=== PATIENT | male | born 1995 | race Caucasian/White ===

== ENCOUNTER 2025-01-21 22:53 | Emergency (ER) | payer MEDICAID, SELFPAY ==
[2025-01-21 23:00] VITALS: BMI 43.7
[2025-01-21 23:05] VITALS: BP 147/77; PULSE 96; RESP 18; TEMP 36.6; O2SAT 97; BMI 43.7
[2025-01-22] VITALS (10 sets, daily range): BP systolic 133–142; BP diastolic 67–81; PULSE 74–89; RESP 22; TEMP 36.9; O2SAT 97–99
--- NOTE | 2025-01-22 03:10 | ED.NEUROSD ---
HPI - Neuro Symptoms/Deficit General Chief Complaint: Neuro Symptoms/Deficit Stated Complaint: Numb on Rt side of body Time Seen by Provider: 01/22/25 02:45 Source: patient Mode of arrival: Ambulatory History of Present Illness HPI Narrative: Patient is a 29-year-old male history of bipolar schizophrenia hypertension presenting today with right-sided numbness. He reports that for the last 2 days he has had right-sided numbness in his arm leg and abdomen and even on his back. No difficulty speaking no weakness no difficulty walking. No chest pain. He told his father abril which is what brought him here. On Anticoagulants: No Related Data Allergies Allergy/AdvReac Type Severity Reaction Status Date / Time No Known Drug Allergies Allergy Verified 01/21/25 23:00 Review of Systems Hematologic/Lymphatic On Anticoagulants: No Patient History Social History Smoking Status: Former smoker Smoking Status: Former smoker Exam Initial Vital Signs Initial Vital Signs: Vital Signs Temperature 97.9 F 01/21/25 23:05 Pulse Rate 96 H 01/21/25 23:05 Respiratory Rate 18 01/21/25 23:05 Blood Pressure 147/77 H 01/21/25 23:05 Pulse Oximetry 97 01/21/25 23:05 Oxygen Delivery Method Room Air 01/21/25 23:05 GENERAL: Well-appearing, well-nourished and in no acute distress. HEENT: Head atraumatic,EOMI, pupils reactive, face symmetric, moist mucous membranes CARDIOVASCULAR: Regular rate and rhythm without murmurs, rubs or gallops. RESPIRATORY: Breath sounds equal bilaterally, no wheezes rales or rhonchi. ABDOMEN: Soft, nontender. Normoactive bowel sounds all 4 quadrants. No guarding or rebound. EXTREMITIES: Normal range of motion, no clubbing or edema. Neurovascularly intact NEUROLOGICAL: Alert and oriented x4.Normal gait and speech. Cranial nerves II through XII grossly intact. Good [id number], good qlaj-[id number], strength equal bilaterally, no dysarthria or aphasia, decreased sensation to the right side no visual changes, no facial droop SKIN: Warm, dry, no laceration, no petechiae, no rashes or lesions. Scores NIH Stroke Scale Level of Conciousness: Alert, keenly responsive Ask month/age: Answers both questions correctly. Open/close eyes, close hand: Performs both tasks correctly Best gaze horizontal: Normal Visual bales: No visual loss Facial palsy: Normal symetrical movement Left arm drift: No drift for full 10 sec Right arm drift: No drift for full 10 sec Left leg drift: No drift for full 5 sec Right leg drift: No drift for full 5 sec Limb ataxia: Absent Sensory on face/arms/legs: Mild to moderate sensory loss, can tell touch Best language: No aphasia, normal Dysarthria: Normal Extinction or inattention: No abnormality Total NIH Stroke scale score: 1 Course Orders Ordered: ED Orders 01/22/25 03:18 CT angio head and neck Stat EKG-12 Lead Stat 01/22/25 03:40 CBC Auto Diff [Complete Blood Count AUTO DIFF] Stat CMP [Comprehensive Metabolic Panel] Stat Troponin & CK Cardiac Panel Stat Vital Signs Vital signs: Vital Signs - 8 hr 01/21/25 23:05 Temperature 97.9 F Pulse Rate 96 H Respiratory Rate 18 Blood Pressure 147/77 H Pulse Oximetry 97 Oxygen Delivery Method Room Air MDM - Neuro Symptoms/Deficit Lab Data 01/22/25 03:40 01/22/25 03:40 Labs: Lab Results 01/22/25 Range/Units 03:40 WBC 9.7 (4.5-11.0) X10^3/uL RBC 4.94 (4.5-5.9) X10^6/uL Hgb 14.2 (13.5-17.5) g/dL Hct 40.3 L (41-53) % MCV 81.6 (80-100) fL MCH 28.8 (26-34) PG MCHC 35.3 (30-36) % RDW 13.1 (11.6-14.8) % Plt Count 220 (150-400) X10^3/uL Neut % (Auto) 55.1 (50-75) % Lymph % (Auto) 31.6 (25-40) % [place] % (Auto) 6.8 (3-14) % Eos % (Auto) 5.4 H (2-4) % Baso % (Auto) 1.1 (0-2) % Neut # (Auto) 5300 (2510-9688) /uL Lymph # (Auto) 3100 (2220-5558) /uL [place] # (Auto) 700 (0-900) /uL Eos # (Auto) 500 H (0-450) /uL Baso # (Auto) 100 (0-100) /uL Sodium 140 (137-145) mmol/L Potassium 4.0 (3.4-5.1) mmol/L Chloride 105 (98-107) mmol/L Carbon Dioxide 25 (22-32) mmol/L BUN 12 (9-20) mg/dL Creatinine 0.79 (0.66-1.25) mg/dL Estimated GFR > 60 (>60) mL/min BUN/Creatinine Ratio 15.2 (6-22) Glucose 94 (70-99) mg/dL Calcium 9.0 (8.4-10.2) mg/dL Total Bilirubin 0.5 (0.2-1.3) mg/dL AST 43 (17-59) IU/L ALT 72 H (<50) IU/L Alkaline Phosphatase 109 (38-126) U/L Total Creatine Kinase 451 H (55-170) U/L Troponin I < 0.012 (0.01-0.034) ng/mL Total Protein 7.7 (6.3-8.2) g/dL Albumin 4.6 (3.5-5.0) g/dL Globulin 3.1 (1.7-4.1) g/dL Albumin/Globulin Ratio 1.5 (1.0-2.8) Imaging Data CTA - brain/neck: Radiologist's Impression: Preliminary report the vasculature of head and neck appears within normal limits there is no occlusion or stenosis ECG Data Attestation: I personally reviewed and interpreted this ECG as follows: Prior ECG tracings: not available for review Interpretation: Sinus rhythm rate of in the 6 PA interval 160 QRS [address] changes or T-wave inversions no priors to compare MDM Narrative Medical decision making narrative: Patient 29-year-old male history of schizoaffective disorder bipolar hypertension presenting today with right-sided numbness of his arm leg and abdomen. Ongoing for the last 2 days. He is out of the window for any kind of thrombolytics. He does not have any weakness NIH stroke scale is 1 per numbness only. Blood work is overall reassuring. CBC shows no leukocytosis or anemia CMP no electrolyte abnormality no ESTEBAN glucose is 94 Bilirubin liver enzymes within normal limits Troponin is negative CPK slightly elevated at 451 but not at level of rhabdo EKGs shows a sinus rhythm no ischemia CT head and neck angio does not show any evidence of large vessel occlusion or CVA. Patient having numbness on his abdomen is not consistent with a CVA. More consistent with like he QRS outpatient follow-up. Discharge Plan Departure Patient Disposition: Home Clinical Impression: Peripheral neuropathy Instructions: DI for Peripheral Neuropathy Activity Restrictions/Additional Instructions: *You have been diagnosed with neuropathy *What to do: At this time please follow up with your primary care provider you may require an outpatient MRI. *Continue to take medications as directed Aspirin 81 mg daily *Follow up with your primary care provider in 2-3 days or call [phone] *Return to ER if you should have increasing weakness confusion or any new, worsening or concerning symptoms Stand Alone Forms: Patient Portal/API
--- NOTE | 2025-01-22 03:18 | DI.CT.S_ITS ---
PROCEDURE: CT ANGIO HEAD AND NECK INDICATIONS: right side numbness x 2 days TECHNIQUE: After the administration of intravenous contrast, 1 mm thick sections acquired from the aortic arch through the [place]. 3-dimensional yejqvhd-hwunpamdd-tqlzfknduy (MIP) and/or volume rendering reformats were acquired of the central intracranial vasculature and neck separately. For radiation dose reduction, the following was used: automated exposure control, adjustment of mA and/or kV according to patient size. COMPARISON: None. FINDINGS: Image quality: Diagnostic. No noncontrast head CT comparison is available HEAD ANGIOGRAPHY: Anterior circulation: ICAs: Patent ACAs: Patent MCAs: Patent AComm: No aneurysm Venous sinuses: Patent on this arterial phase study evaluation Posterior circulation: Dominance: Left Vertebral arteries: Patent Basilar artery: Patent PComms: No aneurysm shipyard helper: Patent NECK ANGIOGRAPHY: Aortic arch and subclavian arteries: Patent CCAs: Patent ICA origins (by NASCET criteria): No hemodynamically significant narrowing. ICAs: Patent ECAs: Origins are patent. Vertebral arteries: Patent Soft tissues: Nonspecific prominent lymph nodes versus subcutaneous nodules in the postauricular regions and adjacent to the occipital bone. No enlarged lymph nodes by size criteria Lung apices: No apical pneumothorax Bones: No aggressive appearing osseous abnormality IMPRESSION: No large vessel occlusion or high-grade stenosis. If there is high concern for parenchymal abnormality, consider MRI. Nonspecific small subcutaneous nodules versus prominent lymph nodes in the bilateral postauricular regions and adjacent to the occipital bone No significant changes from the preliminary report. Any quantitative measurements of stenosis were performed using NASCET criteria. Dictated by: Ace Salvador M.D. on 01/22/2025 at 6:24 Approved by: Ace Salvador M.D. on 01/22/2025 at 6:30
[2025-01-22 03:56] LABS: Add Manual Diff / Slide Review NO; Hematocrit 40.3 % (41-53); Hemoglobin 14.2 g/dL (13.5-17.5); Lymphocytes Absolute Auto 3100 /uL (1100-4500); Mean Corpuscular HGB Conc 35.3 % (30-36); Mean Corpuscular Hemoglobin 28.8 PG (26-34); Mean Corpuscular Volume 81.6 fL (80-100); Platelet Count 220 X10^3/uL (150-400)
[2025-01-22 04:05] LABS: Alanine Aminotransferase 72 IU/L (<50); Albumin 4.6 g/dL (3.5-5.0); Albumin Globulin Ratio 1.5 (1.0-2.8); Alkaline Phosphatase 109 U/L (38-126); Blood Urea Nitrogen 12 mg/dL (9-20); Calcium 9.0 mg/dL (8.4-10.2); Carbon Dioxide 25 mmol/L (22-32); Chloride 105 mmol/L (98-107); Creatine Kinase 451 U/L (55-170); Estimated Glomerular Filt Rate > 60 mL/min (>60); Globulin 3.1 g/dL (1.7-4.1); Glucose 94 mg/dL (70-99); HEMOLYSIS < 15 (0-50); Potassium 4.0 mmol/L (3.4-5.1); Sodium 140 mmol/L (137-145); Total Protein 7.7 g/dL (6.3-8.2)
[2025-01-22 04:17] LABS: Troponin I < 0.012 ng/mL (0.01-0.034)
== END 2025-01-22 05:05 | disposition home or self-care (01) ==
PROVIDERS: Emergency Provider Emergency Medicine
DX: G62.9 Polyneuropathy, unspecified (principal); Z86.79 Personal history of other diseases of the circulatory system
CPT/HCPCS: 36415; 70496; 70498; 80053; 82550; 84484; 85025; 99283; 99284; Q9967